=== PATIENT | male | born 1950 | race Caucasian/White ===

== ENCOUNTER 2017-03-28 21:52 | Emergency (ER) | payer OTHER ==
[~2017-03-28] VITALS: Ht 177.8 cm; Wt 80.3 kg
[~2017-03-28 21:52] MED LIST: ATO40T PO; DIGO0.1262 PO; FURO40TA4 PO; HYDR-2650 PO; ISOS30TA17 PO; METO200T3 PO; SPIR25TA89 PO; WARF5TAB71 PO
[2017-03-28] MEDS ORDERED: HYDROmorphone HCL 2 MG/ML VL IV ONE (22:00)
[2017-03-28] MEDS ORDERED: ONDANSETRON HCL 4 MG/2 ML VIAL IV ONE (22:00)
[2017-03-28] MEDS ORDERED: SODIUM CHLORIDE 0.9% 1,000 ML IV ONE (22:00)
[2017-03-28] MEDS ORDERED: SODIUM CHLORIDE 0.9% 2,000 ML IV ONE (22:45)
[2017-03-28 23:07] LABS: INR 2.47 (0.9-1.15); Prothrombin Time 27.2 sec (9.37-12.3)
[2017-03-28 23:10] LABS: Albumin 2.5 g/dL (3.4-5.0); BUN/Creatinine Ratio 16.4; Calcium 8.1 mg/dL (8.5-10.1); Potassium 4.1 mmol/L (3.5-5.1)
[2017-03-28 23:12] LABS: Bilirubin, Total 0.2 mg/dL (0.2-1.0); Total Protein 6.8 g/dL (6.4-8.2)
[2017-03-28 23:13] LABS: Basophils # (auto) 0.3 uL; Basophils % (auto) 1.7 % (0.0-2.0); DEFINITIVE Y; Eosinophils # (auto) 0.2 uL; Hematocrit 29.9 % (41.0-53.0); Hemoglobin 9.8 g/dL (13.5-17.5); Lymphocytes # (auto) 2.4 uL; Lymphocytes % (auto) 13.3 % (10.0-50.0); Mean Corpuscular Hemoglobin 25.4 pg (28.0-32.0); Mean Corpuscular Hgb Conc. 32.7 g/dL (32.0-36.0); Mean Corpuscular Volume 77.7 fL (80.0-100.0); Mean Platelet Volume 8.1 fL (7.4-10.4); Monocytes # (auto) 0.9 uL; Monocytes % (auto) 4.8 % (0.0-12.0); Neutrophils # (auto) 14.2 uL; Neutrophils % (auto) 79.2 % (37.0-80.0); Platelet Count (auto) 453 10^3/uL (140-450); Red Cell Distribution Width 18.8 % (11.6-16.0)
[2017-03-29] MEDS ORDERED: HYDROmorphone HCL 2 MG/ML VL IV ONE
[2017-03-29 01:52] LABS: Urine Bilirubin Negative (Negative); Urine Blood TRACE /uL (Negative); Urine Color Yellow (Yellow); Urine Glucose Normal (Normal); Urine Ketone TRACE (Negative); Urine Mucus FEW (None Seen); Urine Nitrite Negative (Negative); Urine RBC 9 /hpf (0 - 3); Urine Urobilinogen Normal (Negative)
[2017-03-29 03:08] LABS: Allen Test Yes; Base Excess -2.7 mmol/L (-2.0-2.0); Blood 02Sat 97.7 % (96-100); Blood COHb 0.3 % (0.5-1.5); Blood MetHb 0.2 % (0.0-1.5); HCO3 20.7 mmol/L (22-26.0); HHb 2.3 % (0.0-5.0); MODE NASAL CANNULA; O2Hb 97.2 % (94.0-97.0); PCO2 30.7 mmHg (35.0-45.0); PCO2(T) 30.7 mmHg (35.0-45.0); PO2 126.8 mmHg (80.0-100.0); PO2(T) 126.8 mmHg (80.0-100.0); Sample Type Arterial; pH 7.447 (7.350-7.450)
[2017-03-29] MEDS ORDERED: MORPHINE SULFATE 4 MG/ML SYRG IV ONE (03:45)
[2017-03-29 03:47] LABS: Temperature: 22.9 C (20.0-25.0)
[2017-03-29] MEDS ORDERED: cefTRIAXone 1GM/50ML D5W 50 ML IV ONE ×2 (07:00→07:15)
[2017-03-29 07:10] VITALS: BP 118/75
== END 2017-03-29 07:46 | disposition short-term general hospital (02) ==
LOC: EDBD 21:52 → ER 21:54
DX: D69.9 Hemorrhagic condition, unspecified (principal); D64.9 Anemia, unspecified; I48.91 Unspecified atrial fibrillation; E78.5 Hyperlipidemia, unspecified; I11.0 Hypertensive heart disease with heart failure; I50.9 Heart failure, unspecified; Z85.828 Personal history of other malignant neoplasm of skin; Z79.899 Other long term (current) drug therapy
CPT/HCPCS: 36415; 36600; 71010; 80053; 81001; 82805; 83880; 84484; 85025; 85610; 85730; 86850; 86900; 86901; 93005; 96365; 96375; 96376; 99285; J0696; J1170; J2270; J2405; J7030

== ENCOUNTER 2017-04-28 17:23 | Emergency (ER) | payer OTHER ==
[~2017-04-28] VITALS: Ht 177.8 cm; Wt 90.7 kg
[2017-04-28 18:12] LABS: Basophils # (auto) 0.2 uL; Basophils % (auto) 0.6 % (0.0-2.0); CONDITION Y; DEFINITIVE SEE PRINTOUT; Eosinophils # (auto) 0.5 uL; Eosinophils % (auto) 1.7 % (0.0-7.0); Hematocrit 29.1 % (41.0-53.0); Hemoglobin 9.4 g/dL (13.5-17.5); Lymphocytes # (auto) 4.6 uL; Lymphocytes % (auto) 17.3 % (10.0-50.0); Mean Corpuscular Hemoglobin 25.9 pg (28.0-32.0); Mean Corpuscular Hgb Conc. 32.3 g/dL (32.0-36.0); Mean Corpuscular Volume 80.1 fL (80.0-100.0); Mean Platelet Volume 7.3 fL (7.4-10.4); Monocytes # (auto) 1.3 uL; Monocytes % (auto) 4.8 % (0.0-12.0); Neutrophils # (auto) 20.3 uL; Neutrophils % (auto) 75.6 % (37.0-80.0); Platelet Count (auto) 617 10^3/uL (140-450); Red Cell Distribution Width 19.3 % (11.6-16.0); White Blood Cell 26.9 10^3/uL (4.4-10.8)
[2017-04-28 18:24] LABS: Albumin 2.1 g/dL (3.4-5.0); Alkaline Phosphatase 73 U/L (45-117); Anion Gap 14 (5-15); Aspartate Aminotransferase 14 U/L (15-37); BUN/Creatinine Ratio 15.5; Bilirubin, Total 0.3 mg/dL (0.2-1.0); Blood Urea Nitrogen 23 mg/dL (7-18); Calcium 8.5 mg/dL (8.5-10.1); Carbon Dioxide 18 mmol/L (21-32); Chloride 100 mmol/L (98-107); GFR African American 61 mL/min; GFR Non-African American 50 mL/min; Glucose 220 mg/dL (74-106); Potassium 3.9 mmol/L (3.5-5.1); Sodium 132 mmol/L (136-145); Total Protein 6.7 g/dL (6.4-8.2)
[2017-04-28 18:38] LABS: INR 1.16 (0.9-1.15)
[2017-04-28 18:46] LABS: Prothrombin Time 12.7 sec (9.37-12.3)
[2017-04-28] MEDS ORDERED: ONDANSETRON HCL 4 MG/2 ML VIAL ONE (19:47)
[2017-04-28] MEDS ORDERED: ONDANSETRON HCL 4 MG/2 ML VIAL IV ONE (20:00)
[2017-04-28] MEDS ORDERED: HYDROmorphone HCL 2 MG/ML VL IV ONE ×2 (20:00→22:45)
[2017-04-28] MEDS ORDERED: SODIUM CHLORIDE 0.9% 2,000 ML IV ONE (20:00)
[2017-04-28 20:17] LABS: Anisocytosis Slight; Hypochromia Slight; Platelet Estimate Increased
[2017-04-28 20:18] LABS: Burr Cells FEW; Ovalocytes FEW
[2017-04-28 20:44] LABS: Temperature: 22.2 C (20.0-25.0)
[2017-04-28] MEDS ORDERED: cefTRIAXone 1GM/50ML D5W 50 ML IV ONE (22:30)
[2017-04-28] MEDS ORDERED: SODIUM CHLORIDE 0.9% 1,000 ML IV ONE (22:30)
[2017-04-28] MEDS ORDERED: CLINDAMYCIN 600MG IV 50 ML IV ONE (22:30)
[2017-04-28 23:12] LABS: Lactic Acid w/Reflex 2.4 mmol/L (0.4-2.0)
[2017-04-28 23:45] LABS: REFLEX LACTIC ACID YES OR NO YES
[2017-04-29 01:15] VITALS: BP 118/64
== END 2017-04-29 01:47 | disposition short-term general hospital (02) ==
LOC: EDBD 17:23 → ER 17:25
DX: L03.114 Cellulitis of left upper limb (principal); D69.9 Hemorrhagic condition, unspecified; I50.9 Heart failure, unspecified; I11.0 Hypertensive heart disease with heart failure; I48.91 Unspecified atrial fibrillation; Z79.01 Long term (current) use of anticoagulants; Z85.828 Personal history of other malignant neoplasm of skin
CPT/HCPCS: 36415; 71010; 80053; 83605; 83880; 84484; 85025; 85610; 85730; 86850; 86900; 86901; 87040; 93005; 93971; 96361; 96365; 96366; 96368; 96375; 96376; 99285; J0696; J1170; J2405; J3490; J7030

== ENCOUNTER 2017-05-02 12:01 | Emergency (ER) | payer OTHER ==
[~2017-05-02] VITALS: Ht 177.8 cm; Wt 81.6 kg
[2017-05-02 12:33] LABS: Basophils # (auto) 0 uL; Basophils % (auto) 0.3 % (0.0-2.0); CONDITION Y; DEFINITIVE SEE PRINTOUT; Eosinophils # (auto) 0.1 uL; Eosinophils % (auto) 0.6 % (0.0-7.0); Hemoglobin 9.1 g/dL (13.5-17.5); Lymphocytes # (auto) 0.9 uL; Lymphocytes % (auto) 6.8 % (10.0-50.0); Mean Corpuscular Hemoglobin 27.6 pg (28.0-32.0); Mean Corpuscular Hgb Conc. 33.7 g/dL (32.0-36.0); Mean Corpuscular Volume 81.9 fL (80.0-100.0); Mean Platelet Volume 6.7 fL (7.4-10.4); Monocytes # (auto) 0.7 uL; Monocytes % (auto) 5.2 % (0.0-12.0); Neutrophils # (auto) 11.2 uL; Neutrophils % (auto) 87.1 % (37.0-80.0); Platelet Count (auto) 528 10^3/uL (140-450); Red Cell Distribution Width 21.1 % (11.6-16.0); White Blood Cell 12.9 10^3/uL (4.4-10.8)
[2017-05-02 12:46] LABS: INR 1.06 (0.9-1.15); Prothrombin Time 11.6 sec (9.37-12.3)
[2017-05-02 12:58] LABS: Albumin 2.2 g/dL (3.4-5.0); BUN/Creatinine Ratio 17.8; Bilirubin, Total 0.4 mg/dL (0.2-1.0); Calcium 8.7 mg/dL (8.5-10.1); Potassium 3.8 mmol/L (3.5-5.1); Total Protein 6.9 g/dL (6.4-8.2)
[2017-05-02] MEDS ORDERED: HYDROmorphone HCL 2 MG TAB PO ONE (14:30)
[2017-05-02 17:58] VITALS: BP 119/61
== END 2017-05-02 18:26 | disposition home or self-care (01) ==
LOC: ER 12:01 → EDBD 12:01 → ER 18:26
DX: L03.114 Cellulitis of left upper limb (principal); I48.91 Unspecified atrial fibrillation; I11.0 Hypertensive heart disease with heart failure; I50.9 Heart failure, unspecified; E78.5 Hyperlipidemia, unspecified; Z98.61 Coronary angioplasty status; Z88.8 Allergy status to other drugs, medicaments and biological substances
CPT/HCPCS: 36415; 80053; 85025; 85610

== ENCOUNTER 2017-05-18 08:48 | Emergency (ER) | payer OTHER ==
[~2017-05-18] VITALS: Ht 177.8 cm; Wt 75.7 kg
[2017-05-18 10:28] LABS: Basophils # (auto) 0.1 uL; Basophils % (auto) 0.9 % (0.0-2.0); CONDITION Y; DEFINITIVE SEE PRINTOUT; Eosinophils # (auto) 0.2 uL; Eosinophils % (auto) 2.5 % (0.0-7.0); Hematocrit 25.3 % (41.0-53.0); Hemoglobin 8.3 g/dL (13.5-17.5); Lymphocytes # (auto) 1.1 uL; Lymphocytes % (auto) 11.7 % (10.0-50.0); Mean Corpuscular Hemoglobin 27.1 pg (28.0-32.0); Mean Corpuscular Hgb Conc. 32.8 g/dL (32.0-36.0); Mean Corpuscular Volume 82.5 fL (80.0-100.0); Mean Platelet Volume 7.6 fL (7.4-10.4); Monocytes # (auto) 0.7 uL; Monocytes % (auto) 7.3 % (0.0-12.0); Neutrophils # (auto) 7.4 uL; Neutrophils % (auto) 77.6 % (37.0-80.0); Platelet Count (auto) 546 10^3/uL (140-450); Red Cell Distribution Width 20.1 % (11.6-16.0); White Blood Cell 9.5 10^3/uL (4.4-10.8)
[2017-05-18 10:42] LABS: Albumin 2.2 g/dL (3.4-5.0); Alkaline Phosphatase 82 U/L (45-117); Anion Gap 9 (5-15); Aspartate Aminotransferase 22 U/L (15-37); BUN/Creatinine Ratio 12.6; Bilirubin, Total 0.3 mg/dL (0.2-1.0); Blood Urea Nitrogen 16 mg/dL (7-18); Calcium 8.5 mg/dL (8.5-10.1); Carbon Dioxide 26 mmol/L (21-32); Chloride 97 mmol/L (98-107); GFR African American 73 mL/min; GFR Non-African American 60 mL/min; Glucose 126 mg/dL (74-106); Sodium 132 mmol/L (136-145); Total Protein 7.1 g/dL (6.4-8.2)
[2017-05-18] MEDS ORDERED: DIGOXIN 0.125 MG TAB PO ONE (11:15)
[2017-05-18] MEDS ORDERED: METOPROLOL TARTRATE 25 MG TAB PO ONE (11:15)
[2017-05-18 11:29] LABS: Urine RBC None Seen /hpf (0 - 3)
[2017-05-18 11:40] LABS: Urine Bilirubin Negative (Negative); Urine Blood Negative /uL (Negative); Urine Color Yellow (Yellow); Urine Glucose Normal (Normal); Urine Ketone Negative (Negative); Urine Nitrite Negative (Negative); Urine Squamous Epithelial Cell FEW /hpf (<5); Urine Urobilinogen Normal (Negative)
[2017-05-18] MEDS ORDERED: HYDROCORTISONE 100 MG/60 ML RECT ENEMA PR ONE (12:00)
[2017-05-18] MEDS ORDERED: HYDROcodone-ACET 10/325MG TAB PO ONE (12:00)
[2017-05-18] MEDS ORDERED: HYDROmorphone HCL 2 MG/ML VL IV ONE (17:30)
[2017-05-18] MEDS ORDERED: ONDANSETRON HCL 4 MG/2 ML VIAL IV ONE (17:30)
[2017-05-18 20:03] VITALS: BP 96/63
== END 2017-05-18 20:18 | disposition short-term general hospital (02) ==
LOC: ER 08:48 → EDBD 08:48 → ER 20:18
DX: I48.91 Unspecified atrial fibrillation (principal); E43 Unspecified severe protein-calorie malnutrition; Z68.24 Body mass index [BMI] 24.0-24.9, adult; I11.0 Hypertensive heart disease with heart failure; I50.9 Heart failure, unspecified; E78.5 Hyperlipidemia, unspecified; R42 Dizziness and giddiness; Z79.01 Long term (current) use of anticoagulants; Z79.899 Other long term (current) drug therapy
CPT/HCPCS: 36415; 70450; 71010; 74000; 80053; 81001; 83735; 84484; 85025; 93005; 94761; 96374; 96375; 99285; J1170; J2405

== ENCOUNTER 2017-06-03 08:18 | Emergency (ER) | payer OTHER ==
[~2017-06-03] VITALS: Ht 177.8 cm; Wt 74.8 kg
[2017-06-03] MEDS ORDERED: CALCIUM GLUC 4.65meq/50ml D5AE 50 ML IV ONE (09:15)
[2017-06-03] MEDS ORDERED: SODIUM CHLORIDE 0.9% 1,000 ML IV ONE (09:31)
[2017-06-03] MEDS ORDERED: cefTRIAXone 1GM/50ML D5W 50 ML IV ONE (09:45)
[2017-06-03 09:56] LABS: CONDITION Y; DEFINITIVE SEE PRINTOUT; Hematocrit 25.2 % (41.0-53.0); Hemoglobin 8.2 g/dL (13.5-17.5); Mean Corpuscular Hemoglobin 25.9 pg (28.0-32.0); Mean Corpuscular Hgb Conc. 32.5 g/dL (32.0-36.0); Mean Corpuscular Volume 79.6 fL (80.0-100.0); Mean Platelet Volume 7.7 fL (7.4-10.4); Platelet Count (auto) 555 10^3/uL (140-450); SUSPECT SEE PRINTOUT; White Blood Cell 26.7 10^3/uL (4.4-10.8)
[2017-06-03 09:57] LABS: Red Cell Distribution Width 20.5 % (11.6-16.0)
[2017-06-03 09:58] LABS: Metamyelocytes % 0; Myelocytes % 0; Promyelocytes % 0; Reactive Lymphocytes 0
[2017-06-03 10:07] LABS: INR 1.15 (0.9-1.15); Partial Thromboplastin Time 26.4 sec (22.64-33.71); Prothrombin Time 12.6 sec (9.37-12.3)
[2017-06-03 10:25] LABS: Alkaline Phosphatase 78 U/L (45-117); Anion Gap 13 (5-15); Aspartate Aminotransferase 15 U/L (15-37); BUN/Creatinine Ratio 10.7; Bilirubin, Total 0.5 mg/dL (0.2-1.0); Blood Urea Nitrogen 14 mg/dL (7-18); Calcium 8.4 mg/dL (8.5-10.1); Carbon Dioxide 21 mmol/L (21-32); Chloride 98 mmol/L (98-107); GFR African American 70 mL/min; GFR Non-African American 58 mL/min; Glucose 177 mg/dL (74-106); Potassium 4.2 mmol/L (3.5-5.1); Sodium 132 mmol/L (136-145); Total Protein 6.5 g/dL (6.4-8.2)
[2017-06-03 11:22] LABS: Anisocytosis Slight; Platelet Estimate Increased
[2017-06-03 11:23] LABS: Burr Cells FEW; Giant Platelets Few; Hypochromia Slight; Ovalocytes MODERATE; Schistocytes FEW
[2017-06-03 15:52] LABS: Urine Bilirubin Negative (Negative); Urine Blood Negative /uL (Negative); Urine Color Yellow (Yellow); Urine Glucose Normal (Normal); Urine Ketone Negative (Negative); Urine Nitrite Negative (Negative); Urine RBC <1 /hpf (0 - 3); Urine Squamous Epithelial Cell FEW /hpf (<5); Urine Urobilinogen Normal (Negative)
[2017-06-03] MEDS ORDERED: HYDROcodone-ACET 10/325MG TAB PO ONE (21:45)
[2017-06-03 22:44] VITALS: BP 136/45
== END 2017-06-03 22:55 | disposition short-term general hospital (02) ==
LOC: EDBD 08:18 → ER 08:20
DX: S41.102A Unspecified open wound of left upper arm, initial encounter (principal); I89.0 Lymphedema, not elsewhere classified; I48.91 Unspecified atrial fibrillation; R73.9 Hyperglycemia, unspecified; D64.9 Anemia, unspecified; E43 Unspecified severe protein-calorie malnutrition; I12.9 Hypertensive chronic kidney disease with stage 1 through stage 4 chronic kidney disease, or unspecified chronic kidney disease; N18.9 Chronic kidney disease, unspecified; Z79.899 Other long term (current) drug therapy; E78.5 Hyperlipidemia, unspecified; I95.9 Hypotension, unspecified; Z85.828 Personal history of other malignant neoplasm of skin; Z95.0 Presence of cardiac pacemaker; Z88.6 Allergy status to analgesic agent; Z98.61 Coronary angioplasty status; Z68.23 Body mass index [BMI] 23.0-23.9, adult; X58.XXXA Exposure to other specified factors, initial encounter; Y93.89 Activity, other specified; Y92.89 Other specified places as the place of occurrence of the external cause; Y99.8 Other external cause status
CPT/HCPCS: 36415; 71010; 80053; 81001; 83605; 83735; 84443; 84484; 85007; 85027; 85610; 85730; 86850; 86900; 86901; 87040; 93005; 94761; 96365; 99285; J0696; J7030